=== PATIENT | male | born 1955 | race Caucasian/White ===

== ENCOUNTER 2017-01-03 23:28 | Emergency (ER) | payer OTHER ==
[2017-01-04 00:18] LABS: BASOPHIL % 0.5 % (0-2); PLATELET COUNT 229 x10^3mcL (130-400); RED CELL DISTRIBUTION WIDTH 13.7 % (11.5-14.5)
[2017-01-04 00:33] LABS: CALCIUM 9.5 mg/dL (8.5-10.1); CARBON DIOXIDE 24.9 mmol/L (21-32); CHLORIDE SERUM 108 mmol/L (98-107); CREATININE SERUM 1.3 mg/dL (0.7-1.3); GFR1 60 mL/min; GLUCOSE SERUM 107 mg/dL (74-106); POTASSIUM SERUM 3.8 mmol/L (3.5-5.1); SODIUM SERUM 141 mmol/L (136-145)
[2017-01-04 00:38] LABS: ALBUMIN 4.1 g/dL (3.4-5.0); ALKALINE PHOSPHATASE 71 U/L (46-116); ALT/SGPT 19 U/L (16-63); AST/SGOT 15 U/L (15-37); BILIRUBIN TOTAL 0.2 mg/dL (0.20-1.00); TOTAL PROTEIN, SERUM 7.2 g/dL (6.4-8.2)
[2017-01-04 02:08] LABS: microscopic required? NO
[2017-01-04 02:15] LABS: urine erythrocyte NEGATIVE (NEGATIVE)
[2017-01-04 02:24] LABS: AMPHETAMINE QUAL UR NONE DETECTED (NEG <=1000)
[2017-01-04 02:30] VITALS: BP 131/76
[2017-01-04] MEDS ORDERED: XANAX0.25 MG (15:14)
[2017-01-04] MEDS ORDERED: SEROQUEL25 MG (15:14)
== END 2017-01-04 02:30 | disposition left against medical advice (07) ==
LOC: ED 23:28
PROVIDERS: Emergency Medicine
DX: R41.0 Disorientation, unspecified (principal); Z72.0 Tobacco use
CPT/HCPCS: 36415; 83880; G0480; Q0092

== ENCOUNTER 2017-01-04 13:54 | Inpatient (IN) | payer OTHER ==
[~2017-01-04] VITALS: Ht 182.9 cm; Wt 129.5 kg
--- NOTE | 2017-01-04 14:05 | NUR ---
PT IS A 61 YEAR OLD MALE, PRESENTS TO ED VIA [facility] ALS WITH C/O ALOC. PER MEDIC, PT WAS WALKING AT XCONTRUCTION SITE, AND FELL PER BYSTANDER, PT GOT UP AND STARTED WALKING AGAIN AND FELL AGAIN AND BYSTANDER CALLED 911. UPON ARRIVAL OF MEDICS, PT WAS LAYING ON ASPHALTY FLOOR. PT WAS ALERT AND ORIENTED X2 (NAME AND BIRTHDATE). BS ON SCENE WAS 310. PER MEDIC, PT ADMITTED TO COCAINE USE COUNSELOR CAMP OF MEDICS. UNSURE OF HOW COCAINE WAS USED. UPON ARRIVAL TO ED, PT BREATHING WAS LABORED, PT NO LONGER ALERT, PT NOT RESPONDING TO VERBAL COMMANDS. PT MOANING WITH EVERY EXHALE. PT SKIN HOT TO TOUCH, PT SWEATING PROFUSELY. PT HAD ABRASION ON BILATERAL KNEES, NO ACTIVE BLEEDING. PTS PUPILS BILATERALLY WERE DILATED 6MM AND BRISK. MSE PERFORMED BY DR. HOLM. PT HOOKED TO FULL INSPECTOR RUBBER STAMP DIE.
--- NOTE | 2017-01-04 14:20 | NUR ---
MEWDICATED PT WITH TYLENOL 975MG RECTALLY.
[2017-01-04 14:22] LABS: BASOPHIL % 0.4 % (0-2); PLATELET COUNT 228 x10^3mcL (130-400); RED CELL DISTRIBUTION WIDTH 13.7 % (11.5-14.5)
[2017-01-04 14:40] LABS: CALCIUM 9.6 mg/dL (8.5-10.1); CARBON DIOXIDE 15.1 mmol/L (21-32); CHLORIDE SERUM 107 mmol/L (98-107); CREATININE SERUM 2.4 mg/dL (0.7-1.3); GFR1 29 mL/min; GLUCOSE SERUM 303 mg/dL (74-106); POTASSIUM SERUM 5.3 mmol/L (3.5-5.1); SODIUM SERUM 144 mmol/L (136-145)
--- NOTE | 2017-01-04 14:48 | NUR ---
MEDICATED PT WITH TORADOL 30MG IVP INTOP LEFT HAND PER DR. HOLM VERBAL ORDER.
[2017-01-04 14:49] LABS: ALBUMIN 4.3 g/dL (3.4-5.0); ALKALINE PHOSPHATASE 79 U/L (46-116); ALT/SGPT 23 U/L (16-63); AST/SGOT 25 U/L (15-37); BILIRUBIN TOTAL 0.48 mg/dL (0.20-1.00); CHOLESTEROL 226 mg/dL (<200); TOTAL PROTEIN, SERUM 7.9 g/dL (6.4-8.2)
[2017-01-04] MEDS ORDERED: XANAX0.25 MG (15:14)
[2017-01-04] MEDS ORDERED: SEROQUEL25 MG (15:14)
--- NOTE | 2017-01-04 15:28 | NUR ---
NOTIFIED LIVESTOCK AGENT GAUDENCIO ENRIQUEZ OK TO BE TAKEN FOR CT SCAN OF HEAD
--- NOTE | 2017-01-04 17:00 | NUR ---
REPORT CALLED TO FRACISCO SANCHEZ, SHE WILL ASSUME CARE4 PRIMARY RN POST TRASNFER
--- NOTE | 2017-01-04 17:01 | NUR ---
PT ACCIDENTLY YANKED ON IV, DC'D LEFT HAND IV, CATHETER INTACT.
[2017-01-04 17:06] LABS: CHOLESTEROL/HDL RATIO 5.4
--- NOTE | 2017-01-04 17:07 | NUR ---
PT ARRIVES FROM UNIT AT THIS TIME WITH DANIEL MCMULLEN, EMT. PT TRANSFERRED FROM ED GURNEY TO ICU BED WITHOUT INCIDENT. PT ATTACHED TO A SOIL SCIENCE TECHNICAL OFFICER AT THIS TIME AND SZ PADS IN PLACE.
[2017-01-04 17:16] LABS: T3 TOTAL 1.08 ng/mL
--- NOTE | 2017-01-04 17:40 | NUR ---
PT HAVING FULL BODY TREMORS AND/OR SZ, SZ PADS IN PLACE, 2 MG IVP ATIVAN GIVEN AT THIS TIME. AT BEDSIDE AND AWARE.
[2017-01-04 17:42] LABS: FREE T4 0.92 ng/dL (0.76-1.46); FREE THYROXINE INDEX 2.3 ug/dL (1.4-4.5); T4(THYROXINE) 6.8 ug/dL (4.7-13.3)
[2017-01-04 18:02] VITALS: BP 153/42
--- NOTE | 2017-01-04 18:30 | NUR ---
PT MAP 52, NOTIFY OF LOW BP. TO ORDER LEVOPHED.
--- NOTE | 2017-01-04 18:53 | NUR ---
PT MAP FLUCTUATING, MAP 72. WILL HOLD LEVOPHED IF NEEDED.
--- NOTE | 2017-01-04 19:21 | NUR ---
REPORT RECEIVED FROM FRACISCO SANCHEZ TO ASSUME CARE.
[2017-01-04 19:30] VITALS: BP 78/45
--- NOTE | 2017-01-04 19:30 | NUR ---
ASSESMENT DONE AT THIS TIME. PT IS LAYING SUPINE WITH HOB ELEVATED. PT IS ON 4L OF OXYGEN VIA NC. IV TO RIGHT HAND IS PATENT WITHOUT SIGNS OF INFILTRATION. HOWARD CATHETER IS DRAINING YELLOW URINE TO GRAVITY. PT IS CONNECTED TO LAUNDRY MACHINE TENDER. BED IS LOCKED AND IN LOWEST POSITION WITH RAILS X2 UP. BED IS IN VIEW OF NURSES STATION. WILL CONTINUE TO MONITOR.
[2017-01-04 22:11] LABS: CALCIUM 8.4 mg/dL (8.5-10.1); CARBON DIOXIDE 22.2 mmol/L (21-32); CREATININE SERUM 2.1 mg/dL (0.7-1.3); POTASSIUM SERUM 3.3 mmol/L (3.5-5.1)
--- NOTE | 2017-01-04 22:25 | NUR ---
16 FR NGT PLACED TO RIGHT NARE, AUDIBLE AIR BOLUS. PT UNABLE TO FOLLOW COMMANDS. PT TOLERATED PROCEDURE WELL. AWAITING XRAY TO CONFIRM PLACEMET.
--- NOTE | 2017-01-04 22:42 | NUR ---
RADIOLOGY AT BEDSIDE
[2017-01-05] VITALS (7 sets, daily range): BP systolic 102–170; BP diastolic 58–114
--- NOTE | 2017-01-05 00:28 | NUR ---
LOGISTICS ASSOCIATE AT THE BEDSIDE FOR BLOOD DRAW.
--- NOTE | 2017-01-05 02:29 | NUR ---
PT IS OFF UNTI TO CT ACCOMPANIED BY ABBIE SANCHEZ.
--- NOTE | 2017-01-05 03:05 | NUR ---
CENTRAL LINE PLACEMENT INITIATED AT THIS TIME GUIDED BY U/S AT BEDSIDE. INCAPCITATED CONSENT SIGNED BY MD, TIME OUT PERFORMED. VSS. PT MEDICATED PER MD ORDERS. WILL CONTINUE TO MONITOR.
--- NOTE | 2017-01-05 03:37 | NUR ---
CT RESULTS CALLED IN BY GENE AT [facility]. RESULTS READ BACK AND DR SCOTT AND DR DEL RIO INFORMED.
[2017-01-05 03:54] LABS: UA SPECIFIC GRAVITY 1.025 (1.005-1.035); microscopic required? YES; urine erythrocyte 3+ (NEGATIVE)
--- NOTE | 2017-01-05 04:10 | NUR ---
RADIOLOGY AT BEDSIDE
[2017-01-05 04:25] LABS: AMPHETAMINE QUAL UR NONE DETECTED (NEG <=1000)
[2017-01-05 05:42] LABS: BASOPHIL % 0.1 % (0-2); RED CELL DISTRIBUTION WIDTH 14.2 % (11.5-14.5)
[2017-01-05 05:45] LABS: PLATELET COUNT 53 x10^3mcL (130-400)
[2017-01-05 05:55] LABS: CARBON DIOXIDE 22.2 mmol/L (21-32); CREATININE SERUM 1.8 mg/dL (0.7-1.3); MAGNESIUM 2.3 mg/dL (1.8-2.4); PHOSPHOROUS 3.2 mg/dL (2.5-4.9)
--- NOTE | 2017-01-05 06:00 | NUR ---
DR TORRES AT BEDSIDE TO ASSESS PT. STATUS UPDATES PROVIDED.
--- NOTE | 2017-01-05 07:26 | NUR ---
REPORT GIVEN TO TEZ SANCHEZ. ALL QUESTIONS ANSWERED AND CONCERNS ADDRESSED.
--- NOTE | 2017-01-05 08:00 | NUR ---
PT IS SEDATED FROM MODERATE SEDATION GIVEN FOR CENTRAL LINE PLACEMENT. PT RESPONDS TO TACTILE STIMULI, DOES NOT FOLLOW COMMANDS. PERRLA, 3MM SLUGGISH. PT IS BREATHING EVEN AND UNLABORED ON 2L NC. LUNG SOUNDS ARE CLEAR TO BUL, DIMINISHED TO BASES. S1 S2 HEART SOUNDS AUSCULTATED. PULSES ARE MODERATE X4. CAP REFILL < 3 S. SKIN IS WARM AND PINK. R IJ CVC INTACT, PORTS PATENT, DRESSING CDI, INFUSING 1/2NS @ 100 CC/HR, HEPARIN @ 1400 UNITS/HR. NO EDEMA NOTED. ABRASIONS NOTED TO BILATERAL KNEES. R NARE NGT INTACT AND SECURED. ABD IS SOFT AND ROUNDED, BOWEL SOUNDS ACTIVE X4Q. HOWARD INTACT AND DRAINING VIA GRAVITY. URINE IS GONZALEZ RED, FAIR OUTPUT. NO S/SX OF PAIN AT THIS TIME. PT IN BILATERAL SOFT WRIST RESTRAINTS. BED LOW, SIDE RAILS UP X3, CALL LIGHT IN REACH. WILL CONTINUE TO MONITOR.
--- NOTE | 2017-01-05 09:29 | NUR ---
PATIENT ROUNDS WITH DR. ALVAREZ AND RESIDENTS. CHARGE NURSE AND PRIMARY NURSE AT BEDSIDE. UPDATES PROVIDED AND POC DISCUSSED. WILL CONTINUE TO MONITOR.
--- NOTE | 2017-01-05 10:38 | NUR ---
DR. POSADA MADE AWARE PATIENT'S PLATLETS COUNT WENT DOWN FROM [facility] OF 228 TO 53 THIS MORNING. PATIENT CURRENLTY ON HEPARIN DRIP AT THIS TIME. PATIENT IS CURRENTLY HAVING BLOOD DRAINING FROM F/C AND RIJ SITE WAS BLEEDING PER LEG MAN NURSE. NO NEW ORDERS AT THIS TIME. WILL CONTINUE TO MONITOR.
--- NOTE | 2017-01-05 12:45 | NUR ---
TECH AT BEDSIDE FOR ECHOCARDIOGRAM.
--- NOTE | 2017-01-05 13:17 | NUR ---
LIMITED ECHO ONLY. PT CONFUSED AND COMBATIVE.
--- NOTE | 2017-01-05 14:22 | NUR ---
LAB CALLED WITH PTT RESULT >150. HEPARIN DRIP OFF AT THIS TIME. WILL ORDER PTT IN 2 HRS FOR 1420 PER PROTOCOL. WILL CONTINUE TO MONITOR.
--- NOTE | 2017-01-05 14:31 | NUR ---
DR. LEE AT BEDSIDE TO ASSESS PATIENT. UPDATES PROVIDED AND POC DISCUSSED. PLAN TO DC HEPARIN DRIP AT THIS TIME. WILL FOLLOW AND CONTINUE TO MONITOR.
[2017-01-05 15:30] LABS: AMPHETAMINE QUAL UR NONE DETECTED (NEG <=1000)
--- NOTE | 2017-01-05 19:20 | NUR ---
REPORT RECEIVED TO ASSUME CARE. QUESTIONS AND CONCERNS ADDRESSED.
--- NOTE | 2017-01-05 19:25 | NUR ---
DR PHILLIPS PAGED TO ASSESS PT. PT ALTERED AND EXTREMELY RESTLESS.
--- NOTE | 2017-01-05 19:33 | NUR ---
DR PHILLIPS AT BEDSIDE TO ASSES PT. STATUS UPDATES PROVIDED. WILL AWAIT NEW ORDERS.
--- NOTE | 2017-01-05 23:54 | NUR ---
PT REMAINS AGITATED TRYING TO SIT UP AND GET OOB WITH BILATERAL SOFT WRIST REASTRAINTS IN PLACE FOR SAFETY.ATIVAN 2 MG IVP GIVEN ORDERED.
[2017-01-06 03:30] VITALS: BP 133/76
--- NOTE | 2017-01-06 03:42 | NUR ---
DR SOTO INFORMED PT IS HAVING EXPIRATORY WHEEZING. WILL CONTINUE TO MONITOR.
[2017-01-06 04:47] LABS: BASOPHIL % 0.4 % (0-2)
[2017-01-06 04:48] LABS: PLATELET COUNT 51 x10^3mcL (130-400); RED CELL DISTRIBUTION WIDTH 14.6 % (11.5-14.5)
[2017-01-06 04:56] VITALS: BP 104/59
[2017-01-06 05:02] LABS: CALCIUM 8.4 mg/dL (8.5-10.1); CARBON DIOXIDE 21.9 mmol/L (21-32); CREATININE SERUM 1.4 mg/dL (0.7-1.3); MAGNESIUM 2.3 mg/dL (1.8-2.4); PHOSPHOROUS 2.1 mg/dL (2.5-4.9); POTASSIUM SERUM 3.7 mmol/L (3.5-5.1)
--- NOTE | 2017-01-06 05:30 | NUR ---
DR WHITAKER AT BEDSIDE TO ASSESS PT. STATUS UPDATES PROVIDED.
--- NOTE | 2017-01-06 07:15 | NUR ---
REPORT RECIEVED FROM NOC SHIFT DANIEL CATHERINE, UPDATES PROVIDED, ALL QUESTIONS ANSWERED ALL CONCERNS ADDRESSED WILL ASSESS PATIENT SHORTLY AND ASSUME CARE.
[2017-01-06 07:40] VITALS: BP 144/75
--- NOTE | 2017-01-06 07:40 | NUR ---
PATIENT ASSESSED AT THIS TIME. PATIENT IS RESTING CALMLY IN BED AND IS ABLE TO BE AROUSED BY VERBAL STIMULI BUT QUICKLY FALLS BACK ASLEEP. PATIENT IS A/O X2 TO PERSON AND PLACE. VITAL SIGNS ARE TEMP 98.8, HR 86, 02 98, BP 144/75(90), RR 18. PATIENT IS ON 2 LPM PER NASAL CANNULA. PATIENT IS SATTING WELL. CHEST RISES SYMMETRICALLY LUNG SOUNDS ARE CLEAR BILATERALLY. PATIENT IS ON CCHO DIET. RIJ IN PLACE INFUSING 1/2 NS AT 140 ML/HR. PUPILS ARE 2 MM AND BRISK BILATERALLY. PULSES ARE STRONG RANDALL, CAP REFILL IS <3 SECONDS RANDALL. LUNG SOUNDS ARE CLEAR BILATERALLY. BOWEL SOUNDS ARE ACTIVE IN ALL 4 QUADRANTS AND SHOWS NO SIGNS OF PAIN UPON PALPATION. PATIENT HAS HOWARD CATHETER IN PLACE THAT IS DRAINING GONZALEZ COLORED URINE TO GRAVITY. SKIN IS WARM AND DRY. ABRASIONS NOTED TO BILATERAL KNEES WITH DRESSING IN PLACE. WILL CONTINUE TO MONITOR.
--- NOTE | 2017-01-06 08:05 | NUR ---
RT BEDSIDE AT THIS TIME FOR EKG. WILL CONTINUE TO MONITOR.
--- NOTE | 2017-01-06 09:35 | NUR ---
DR. DICKINSON BEDSIDE ROUNDING WITH RESIDENTS AT THIS TIME. UPDATES PROVIDED, NO NEW ORDERS RECEIVED. WILL CONTINUE TO MONITOR PATIENT.
--- NOTE | 2017-01-06 09:42 | NUR ---
DR. CARDOZA BEDSIDE AT THIS TIME FOR ASSESSMENT. UPDATES PROVIDED, ABG TO BE ORDERED.
--- NOTE | 2017-01-06 11:23 | NUR ---
Initial Nutrition Assessment Dx: Sepsis PMHx: Depression, unknown medical history due to pt AOx0 PSHx: L TKA Labs: Na 149 H, BG 79, BUN 17, Cr 1.4 H, Phosphorous 2.1 L, Troponin 10.481 H, WBC 11.3 H, H/H 12.5/37 L; (01/04) Cholesterol 226 H, LDL 166 H, A1C 5.7, Lactic Acid 3.7 H Meds: Ativan, Colace, D50, folic acid, humulin R, lactinex, NS IV, NS IV, vitamin B1, zofran Current Diet Order: Cardiac PO Intakes: (01/05) D: 0% - Needs assistance Ht: 72", 6'. Wt: 286 lb, 130 kg. BMI: 38.9 kg/m2 (Obesity Class II) IBW: 178 lb, 81 kg. %IBW: 160%. Adj BW: 205 lb, 93 kg. UBW: Unable to obtain. Age: 61 Y/O M Food Allergies: Unable to obtain. Skin: Ecchymosis to BUE, discoloration to BLE; Intact. Edu 16. Per RN, pt has abrasions on knees and bruises everywhere throughout the body, no open wounds noted. Edema: None GI: Abd soft, round. Active bowel sounds. Last BM - Unknown. Pt found with SIRS vs possible sepsis, unknown source, metabolic encephalopathy likely secondary to heat stroke per doctor's notes. Per doctor's progress note 01/06, ECHO pending, Dr. Holland evaluated pt and stopped IV heparin due to bleeding, placed on alcohol withdrawal protocol, very agitated, on soft restraints, gross blood present in urine, tongue is raw and red with gross blood on lips, teeth, gums; Pt with suspect sepsis secondary to aspiration pneumonia. Pt appears confused, not on sedation, appears overly-nourished, consistent with documented anthropometrics. No family at bedside. Spoke with RN, reported that pt is confused, took a very long time to swallow medications (whole), no swallowing issues noted, likely will want to do an ABG today. RN also stated that pt did not eat anything since dinner yesterday due to confusion, lethargy, on restraints. Estimated Nutritional Needs Based IBW 178 lb, 81 kg. Temperature: 98.8 F Energy: 0860-1439 kcal/day (30-35 kcal/kg for Sepsis) Protein: 122-162 gm/day (1.5-2 gm/kg for Sepsis) Fluids: 2430 ml/day (30 ml/kg for Maintenance) or per doctor Nutrition Diagnosis 1. Increase nutritional needs related to increase metabolic demands as evidenced by elevated lactic acid 3.7, WBC 11.3, pt with sepsis, unknown source 2. Inadequate oral intakes related to confusion, lethargy, likely altered mental status as evidenced by PO intakes 0% x2 meals Intervention 1. Note that Cardiac diet may not be appropriate for pt at this time due to confusion, lethargy. Please consider NPO status for now. 2. Consider advance diet per doctor if/when medically appropriate. 3. If able to advance to PO diet, consider Mechanical Soft, Chopped, Cardiac diet if/when medically appropriate. 4. If unable to advance to PO diet within 5-7 days, consider alternative nutrition support (EN Support) if/when medically appropriate. 5. If nutrition support is warranted, consider TF Nutren 1.5 at 20 ml/hr, increase 10 ml Q6h to goal 65 ml/hr, Free Water Flush: 150 ml Q6h. This provides 2340 kcal, 106 gm protein, 1792 ml free water daily. This meets 96% of caloric goal and 87% of protein goal. Monitor/Evaluate Goal: NPO <5-7 days; Diet advancement within 5-7 days Monitor: NPO status, diet advancement, labs, skin integrity, GI function, weights F/U in 2-3 days as HIGH risk (01/08-01/09)
[2017-01-06 11:45] VITALS: BP 104/77
--- NOTE | 2017-01-06 12:02 | NUR ---
PATIENT GOWNS AND LINEN CHANGED. FULL BED BATH GIVEN. LARGE AMOUNT OF BROWN LIQUID STOOL NOTED. APPROX. 400 ML. PATIENT WAS COMBATIVE DURING LINEN CHANGED AND REQUIRED MULTIPLE STAFF TO CLEAN.
[2017-01-06 15:10] VITALS: BP 123/71
--- NOTE | 2017-01-06 16:00 | NUR ---
DR. CERVANTES BEDSIDE AT THIS TIME. UPDATE PROVIDED, NO NEW ORDERS RECIEVED.
--- NOTE | 2017-01-06 17:17 | NUR ---
DR. CARDOZA BEDSIDE AT THIS TIME FOR ASSESSMENT. BREATHING TREATMENT TO BE ORDERED DUE TO PATIENT WHEEZING
--- NOTE | 2017-01-06 17:29 | NUR ---
RT CRAIG PAGED AT THIS TIME DUE TO PATIENT WHEEZING. BREATHING TREATMENT TO BE GIVEN.
--- NOTE | 2017-01-06 19:15 | NUR ---
RECEIVED REPORT FROM FÉLIX SANCHEZ. UPDATES PROVIDED, ALL QUESTIONS ANSWERED, ALL CONCERNS ADDRESSED. WILL ASSUME TOTAL CARE.
--- NOTE | 2017-01-06 19:23 | NUR ---
REPORT GIVEN TO NOC SHIFT DANIEL TAY. WILL ENDORSE CARE.
[2017-01-06 19:25] VITALS: BP 146/85
--- NOTE | 2017-01-06 19:25 | NUR ---
RECEIVED PT RESTING IN BED. PT HAS ALOC, ALERT AND ORIENTED X 2. PT IS AROUSABLE BY VERBAL STIMULI, BUT QUICKLY FALLS BACK ASLEEP. PUPILS 3 MM BILAT AND BRISK REACTION TO LIGHT BILAT. RIJ TLC CDI IN PLACE, SECURED, FLUSHING WELL, INFUSING 1/2 NS AT 140 ML/HR. TRACHEA MIDLINE, NO SCLERAL EDEMA NOTED. NO DRAINAGE FROM EENT. PT BREATHING ON ROOM AIR, SATTING 96-97%. LUNG SOUNDS EXPIRATORY WHEEZES TO BUL AND DIM TO BLL. CHEST RISES SYMMETRICALLY. S1, S2 AUSCULTATED. CHEST WALL STABLE. SKIN COLOR IS CONSISTENT WITH ETHNICITY, PERIPHERAL PULSES MODERATE TO BUE AND BLE. CAP REFILL IS <3 SECONDS TO BUL AND BLE. NO EDEMA NOTED. GENERALIZED WEAKNESS. RESTRAINTS NOTED TO BUE. ACTIVE ROM TO BLE AND ACTIVE LIMITED ROM TO BUE. NO OBVIOUS CONTRACTURES OR DEFORMITIES NOTED. PATIENT IS ON CARDIAC DIET. NO N/V NOTED. ABD SOFT, ROUND, AND NONTENDER TO PALPATION. ACTIVE BOWEL SOUNDS X 4. NO BM AT THIS TIME. HOWARD CATHETER IN PLACE DRAINING DARK AURY COLORED URINE TO GRAVITY. NO SCROTAL EDEMA OR PENILE DISCHARGE NOTED. PATIENT HAS HEALING ABRASIONS TO BLE KNEES LOGISTICS SUPPORT, ECCHYMOSIS NOTED TO BUE AND BLE. SOFT WRIST RESTRAINTS TO BUE. BED ON LOWEST POSITION, SIDE RAILS UP X 3, CALL LIGHT WITHIN REACH. WILL CONTINUE TO MONITOR PATIENT.
--- NOTE | 2017-01-06 22:35 | NUR ---
PATIENT IS AGITATED, RESTLESS, FREQUENTLY REPOSITIONING, AND PULLING AT RESTRAINTS. OTHER NONPHARMACOLOGICAL INTERVENTIONS ATTEMPTED SUCH REORIENTING AND PROVIDING A QUIET ENVIRONMENT. WILL MEDICATE PRN ATIVAN, SEE EMAR. WILL CONTINUE TO MONITOR.
[2017-01-07] VITALS (7 sets, daily range): BP systolic 123–155; BP diastolic 73–100
[2017-01-07 05:47] LABS: BASOPHIL % 0.4 % (0-2); RED CELL DISTRIBUTION WIDTH 14.5 % (11.5-14.5)
[2017-01-07 05:49] LABS: PLATELET COUNT 53 x10^3mcL (130-400)
[2017-01-07 06:03] LABS: CALCIUM 8.2 mg/dL (8.5-10.1); CARBON DIOXIDE 22.4 mmol/L (21-32); CHLORIDE SERUM 111 mmol/L (98-107); GFR1 > 60 mL/min; GLUCOSE SERUM 92 mg/dL (74-106); PHOSPHOROUS 1.9 mg/dL (2.5-4.9); POTASSIUM SERUM 3.9 mmol/L (3.5-5.1); SODIUM SERUM 143 mmol/L (136-145)
--- NOTE | 2017-01-07 07:25 | NUR ---
REPORT GIVEN TO DAY SHIFT RN. UPDATES PROVIDED, ALL QUESTIONS ANSWERED, ALL CONCERNS ADDRESSED.
--- NOTE | 2017-01-07 08:34 | NUR ---
DR DICKINSON ON UNIT. PATIENT RESTLESS AND AGITATED. PER MD ORDER, ADMINISTER 2.5MG HALDOL IVP. WILL CONTINUE TO MONITOR.
--- NOTE | 2017-01-07 12:23 | NUR ---
PLACED PT ON HIGHFLOW 25LPM FIO2 35% PER DR. RAMIRO CHO, RN DAGO VEGA, WILL MONITOR.
--- NOTE | 2017-01-07 14:29 | NUR ---
Follow Up Nutrition Assessment Dx: Sepsis PMHx: Depression, unknown medical history due to pt AOx0 Labs: BG 92, BUN 13, Cr 1, Phosphorous 1.9 L, WBC 9.9, H/H 11.9/36 L; (01/06) Troponin 10.481 H; (01/04) A1C 5.7, Lactic Acid 3.7 H Meds: Ativan, Colace, D50, folic acid, humulin R, lactinex, NS IV, NS IV, theragran, vitamin B1, zofran Current Diet Order: NPO except meds (x3 days) (unable to tolerate) Prior Diet Order: Cardiac PO Intakes: (01/07) B/L/D: 0% (pt too lethargic to eat); (01/06) B/L/D: 0%; (01/05) D: 0% - Needs assistance Weights: (01/06) 286 lb, 130 kg. BMI: 38.9 kg/m2 (Obesity Class II) Skin: Bruising scattered throughout all skin areas, scabs to bilateral knees, healing, scabs to inner lips. Edu 16. Edema: Non-pitting edema BLE GI: Abd soft, round. Active bowel sounds. Last BM - Unknown. Per doctor's progress note 01/07, pt was off oxygen therapy overnight, adequate oxygen saturation at 96-98%, pt responsive to voice, mumbles acknowledged response but unable to answer in full sentences; Pt with septic shock likely secondary to aspiration pneumonia, respiratory distress secondary to aspiration pneumonia vs ARDS secondary to hyperthermia. Pt eyes closed, not on sedation, no family at bedside. Pt continues to be lethargic, unable to eat at this time. Spoke with Dr. Sam at bed huddles regarding diet order as diet order still states Cardiac diet, doctor agreeable with making pt NPO at this time. Estimated Nutritional Needs Based IBW 178 lb, 81 kg. Temperature: 98.8 F Energy: 9464-5741 kcal/day (30-35 kcal/kg for Sepsis) Protein: 122-162 gm/day (1.5-2 gm/kg for Sepsis) Fluids: 2430 ml/day (30 ml/kg for Maintenance) or per doctor Nutrition Diagnosis 1. Increase nutritional needs related to increase metabolic demands as evidenced by elevated lactic acid 3.7, WBC 11.3, pt with sepsis, unknown source - *Ongoing 2. Inadequate oral intakes related to confusion, lethargy, likely altered mental status as evidenced by PO intakes 0% x2 meals - *Ongoing Intervention 1. Consider advance diet per doctor if/when medically appropriate. 2. If able to advance to PO diet, consider Mechanical Soft, Chopped, Cardiac diet if/when medically appropriate. 3. If unable to advance to PO diet within 5-7 days, consider alternative nutrition support (EN Support) if/when medically appropriate. 4. If nutrition support is warranted, consider TF Nutren 1.5 at 20 ml/hr, increase 10 ml Q6h to goal 65 ml/hr, Free Water Flush: 150 ml Q6h. This provides 2340 kcal, 106 gm protein, 1792 ml free water daily. This meets 96% of caloric goal and 87% of protein goal. Monitor/Evaluate Goal: NPO <5-7 days; Diet advancement within 5-7 days Previous Goal: NPO <5-7 days - Not Met; Diet advancement within 5-7 days - Not Met Monitor: NPO status, diet advancement, labs, skin integrity, GI function, weights F/U in 2-3 days as HIGH risk (01/09-01/10)
--- NOTE | 2017-01-07 14:38 | NUR ---
CHANGED CENTRAL LINE DRESSING USING CENTRAL LINE CLEANING KIT. DRESSING CDI. DID HOWARD LUKE CARE AND CHANGED STAT LOCK ON LEG.
--- NOTE | 2017-01-07 18:18 | NUR ---
AAO TO PERSON, TALKS OCCASIONALLY, STATES HIS NAME. CONFUSED. UNABLE TO OBEY COMMANDS, RESISTS AND WITHDRAWS TO ALL INTERACTIONS. HE IS VERY STRONG. 4 POINT RESTRAINTS, HE KICKS AND TRIES TO REMOVE LINES AND TUBES IF UNDONE. FOELY CATH DRAINING AURY URINE TO BSD. RIGHT IJ CVC SITE CDI, THE DRESSING WAS CHANGED WITH THE CVC KIT. HOWARD CARE GIVEN. HOWARD CATH DRAINED 650 ML DARK AURY URINE TO BSD. NO C/O PAIN. O2 IS HI FLOW 25/35, O2 SAT 96%.
--- NOTE | 2017-01-07 19:20 | NUR ---
REPORT RECIEVED FROM DANIEL LOZA. ALL QUESTIONS AND CONCERNS ADDRESSED.
--- NOTE | 2017-01-07 22:00 | NUR ---
PT BECOMING MORE AGGITATED, HALDOL 5MG GIVEN IM AT THIS TIME. WILL CONTINUE TO MONITOR FOR MEDICATION EFFECTS.
[2017-01-08 04:07] VITALS: BP 157/87
[2017-01-08 06:04] LABS: BASOPHIL % 0.1 % (0-2)
[2017-01-08 06:08] LABS: PLATELET COUNT 76 x10^3mcL (130-400); RED CELL DISTRIBUTION WIDTH 14.7 % (11.5-14.5)
[2017-01-08 06:16] LABS: CALCIUM 8.2 mg/dL (8.5-10.1); CARBON DIOXIDE 25.2 mmol/L (21-32); CHLORIDE SERUM 108 mmol/L (98-107); CREATININE SERUM 0.8 mg/dL (0.7-1.3); GFR1 > 60 mL/min; GLUCOSE SERUM 105 mg/dL (74-106); POTASSIUM SERUM 3.5 mmol/L (3.5-5.1); SODIUM SERUM 140 mmol/L (136-145)
--- NOTE | 2017-01-08 06:28 | NUR ---
XRAY IS AT BEDSIDE.
--- NOTE | 2017-01-08 07:30 | NUR ---
REPORT GIVEN TO DANIEL LAU. ALL QUESTIONS AND CONCERNS ADDRESSED.
[2017-01-08 08:00] VITALS: BP 157/85
--- NOTE | 2017-01-08 08:00 | NUR ---
PT. APPEARS RESTLESS CONFUSED AND ATTEMPTED TO GET OUT OF BED. ON RANDALL. SOFT WRIST RESTRAINTS UPPER AND LOWER EXT.SEE RESTRAINTS SHEET PROTOCOL.PT. ABLE TO FOLLOW SIMPLE COMMANDS ,TURN Q 2 HRS FOR COMFORT.HOWARD CATH. PATENT AND DRAINING AURY COLOR URINE.TOTAL CARE RENDERED.CONT. IV FLUIDS ORDERED.NO ACUTE RESP. DISTRESS NOTED. CONT. R.T PROTOCOL. WILL CONT. PLAN OF CARE.
--- NOTE | 2017-01-08 08:30 | NUR ---
PATIENT ROUNDS WITH DR. BRASWELL AND RESIDENTS. CHARGE NURSE AND PRIMARY NURSE AT BEDSIDE. UPDATES PROVIDED AND POC DISCUSSED. WILL CONTINUE TO MONITOR.
--- NOTE | 2017-01-08 09:00 | NUR ---
DR. BRASWELL HERE W/ OTHER MEDICAL STAFF MADE ROUNDS AND UPDATED PT. PLAN OF CARE.
--- NOTE | 2017-01-08 10:05 | NUR ---
REPORT RECEIVED AT BEDSIDE AT THIS TIME FROM DANIEL LAU. ALL QUESTIONS ANSWERED, ALL CONCERNS ADDRESSED.
--- NOTE | 2017-01-08 10:05 | NUR ---
REPORT GIVEN TO MICHAEL SANCHEZ TO CONT. PT. CARE.
--- NOTE | 2017-01-08 10:14 | NUR ---
RESTRAINT REAPPLIED TO LUE. RESTRAINT LOOSE. PT CONTINUES TO BE RESTLESS AND THRASHING IN BED.
--- NOTE | 2017-01-08 10:30 | NUR ---
PT REPOSITIONED IN BED. RESTRAINTS TIGHTENED. PT ATTEMPTING TO GRAB IV LINE. WILL CONTINUE TO MONITOR.
[2017-01-08 11:00] VITALS: BP 148/78
--- NOTE | 2017-01-08 11:00 | NUR ---
PT ASSESSED AT THIS TIME. PT BELLY BREATHING ON HI-FLOW O2. PT HAS TACHYPNEA AND WHEEZING ON INSPIRATION AND EXPIRATION. REMAINS ON FOUR POINT RESTRAINTS. RESTLESS AND ALTERED. NO ACUTE CHANGES NOTED IN PT'S STATUS PER REPORT. WILL CONTINUE TO MONITOR.
--- NOTE | 2017-01-08 11:13 | NUR ---
DR LEE ON UNIT AT THIS TIME TO ASSESS. UPDATES PROVIDED.
--- NOTE | 2017-01-08 11:15 | NUR ---
PT PLACED ON COOLING MEASURES AT THIS TIME.
--- NOTE | 2017-01-08 12:00 | NUR ---
PT CHANGED TO 50% AND 30LPM ON HI FLOW OXYGEN
--- NOTE | 2017-01-08 13:17 | NUR ---
DR. RUBIO MADE AWARE OF PATIENT'S ABG RESULTS. ORDERS TO PLACE PATIENT ON BI-PAP /6 AND OBTAIN ABG IN ONE HOUR AFTER PLACING PATIENT ON BI-PAP. ALSO AN ORDER FOR STAT CXR. WILL FOLLOW AND CONTINUE TO MONITOR.
--- NOTE | 2017-01-08 13:18 | NUR ---
RT AT BEDSIDE TO PLACE PT ON BIPAP
--- NOTE | 2017-01-08 13:26 | NUR ---
@1315, PT PLACED ON BIPAP 12/6 BUR 14 50% PER MD RUBIO. PT APPEARED TO SHOW SIGNS OF INCREASED WOB. PT TOLERATED WELL. PT REMAINS RESTRAINED AND PT WAS EDUCATED ABOUT USING THE BIPAP. SATURATION 98%. CXR TO BE DONE AND FOLLOW UP ABG PER MD RUBIO. RN AWARE OF CHANGES MADE. WILL CONTINUE TO MONITOR PT.
--- NOTE | 2017-01-08 13:55 | NUR ---
PT LAYING IN BED RESTING COMFORTABLY AT THIS TIME. PT NOT THRASHING IN BED. NO DISTRESS NOTED.
--- NOTE | 2017-01-08 14:15 | NUR ---
PT'S FiO2 TITRATED DOWN TO 35% AFTER ABG
--- NOTE | 2017-01-08 14:50 | NUR ---
DAX FROM CASE MANAGEMENT CALLED AT THIS TIME. UPDATES PROVIDED.
--- NOTE | 2017-01-08 14:57 | NUR ---
DAX FROM CASE MANAGEMENT CALLED AT THIS TIME. NO BEDS AVAILABLE AT [facility].
[2017-01-08 15:00] VITALS: BP 167/86
--- NOTE | 2017-01-08 15:00 | NUR ---
PT REASSESSED AT THIS TIME. PT BECOMING MORE AWAKE AND MORE ALERT. PT REMAINS ON BIPAP AT THIS TIME AND ON FOUR POINT RESTRAINTS FOR SAFETY. PT EDUCATED ON RESTRAINT INDICATIONS. WILL REMOVE TWO RESTRAINTS IF PT REMAINS CALM. NO ACUTE SIGNS OF DISTRESS. WILL CONTINUE TO MONITOR.
--- NOTE | 2017-01-08 15:39 | NUR ---
DR MONTOYA AT BEDSIDE AT THIS TIME TO ASSESS PT.
--- NOTE | 2017-01-08 16:30 | NUR ---
RESTRAINTS REMOVED FROM BLE AT THIS TIME FOR TRIAL.
--- NOTE | 2017-01-08 17:35 | NUR ---
PT GIVEN FULL BED BATH AND LINEN CHANGE PROVIDED AT THIS TIME. PT BECAME MORE RESPONSIVE AND ABLE TO FOLLOW COMMANDS AND ASSIST WITH TURNING. PT EDUCATED ON REMOVAL OF HOWARD. PT AGREED.
--- NOTE | 2017-01-08 18:00 | NUR ---
PT ABLE TO SWALLOW PILLS WITHOUT ISSUE AT THIS TIME.
--- NOTE | 2017-01-08 18:41 | NUR ---
HOWARD CATHETER REMOVED AT THIS TIME. CONDOM CATHETER PLACED.
--- NOTE | 2017-01-08 19:00 | NUR ---
RECVEIVED REPORT FROM DANIEL RODRIGUEZ, ALL QUESTIONS ADDRESSED HINA TAKE OVER CARE.
--- NOTE | 2017-01-08 19:08 | NUR ---
REPORT GIVEN TO NOC RN. ALL QUESTIONS ANSWERED, ALL CONCERNS ADDRESSED.
[2017-01-08 19:50] VITALS: BP 163/88
--- NOTE | 2017-01-08 19:50 | NUR ---
PT ON BIPAP 12/6, FIO2 35, O2 96, EYES OPEN SPONTANEOUSLY, NO S/S OF HEADACHE, NO DRAINAGE EENT, NO COUGH OR SECRETIONS, ORAL MUCOSA PINK AND DRY. RESPIRATIONS EQUAL AND UNLABORED, LUNGS DIMINISHED, NO S/S OF DISTRESS. HR 81, BP 163/88, MAP 121, S1S2 AUSCULTATED, NO CP, DIZZINESS OR SYNCOPE. CHEST WALL STABLE. SKIN APPROPRIATE FOR ETHNICITY, WARM AND DRY, CAP REFILL <3, NO EDEMA NOTED, PULSES PALPABLE. NO CONTRACTURES OR DEFORMITIES, GENERALIZED WEAKNESS, LIMITED ACTIVE ROM DUE TO SOFT RESTRAINTS BUE. NO N/V. ABD SOFT, ROUND NONTENDER, BOWEL SOUNDS ACTIVE, LOOSE BM. NO PENIAL DRAINAGE OR EDEMA. MULTIPLE ABRASIONS BUE/BLE/KNEES. CALM AND COOPERATIVE, WILL CONTINUE TO MONITOR.
[2017-01-08 23:24] VITALS: BP 173/75
[2017-01-09 03:26] VITALS: BP 140/74
[2017-01-09 05:04] LABS: PLATELET COUNT 118 x10^3mcL (130-400)
[2017-01-09 05:08] LABS: CALCIUM 8.7 mg/dL (8.5-10.1); CARBON DIOXIDE 24.4 mmol/L (21-32); CHLORIDE SERUM 107 mmol/L (98-107); CREATININE SERUM 0.7 mg/dL (0.7-1.3); GFR1 > 60 mL/min; GLUCOSE SERUM 97 mg/dL (74-106); POTASSIUM SERUM 3.4 mmol/L (3.5-5.1); SODIUM SERUM 143 mmol/L (136-145)
--- NOTE | 2017-01-09 05:30 | NUR ---
PT SAT IN CHAIR WHILE WE CHANGED HIS LINENS AND HELPED WASH HIMSELF UP, PLACED ON 2L NC, WILL CONTINUE TO MONITOR
--- NOTE | 2017-01-09 05:55 | NUR ---
DR TORRES AT BEDSIDE NO NEW ORDERS, WILL CONTINUE TO MONITOR
--- NOTE | 2017-01-09 06:08 | NUR ---
RT ECHEVARRIA PLACED PT BACK ON BIPAP, UNTILL DR RUBIO EVALUATES PT, WILL CONTINUE TO MONITOR
--- NOTE | 2017-01-09 07:08 | NUR ---
REPORT GIVEN TO DANIEL REAGAN, ALL QUESTIONS ADDRESSED, WILL ENDORSE CARE
--- NOTE | 2017-01-09 07:34 | NUR ---
PT IS RESTING COMFORTABLY, EASILY AROUSABLE AND FOLLOWS COMMANDS. PT IS ORIENTED TO PERSON AND PLACE. PERRLA, 4MM SLUGGISH. PT IS ON BIPAP: RATE 14, EP 6, IP 12, FIO2 35%. BREATHING IS EVEN AND UNLABORED. LUNG SOUNDS ARE DIMINISHED THROUGHOUT. HEART SOUNDS DISTANT. NSR. PULSES ARE MODERATE X4. CAP REFIL < 3 S. SKIN IS WARM AND PINK. TRACE EDEMA TO BUE AND BLE. R IJ CVC INTACT, PORTS PATENT, DRESSING CDI. 1/2 NS INFUSING @ 140 CC/HR. ABD IS OBESE, BOWEL SOUNDS ACTIVE X4Q. PT IS INCONTINENT. PT DENIES PAIN AT THIS TIME. DENIES CHEST PAIN. HOB ELEVATED, BED LOW, SIDE RAILS UP X3, CALL LIGHT IN REACH. WILL CONTINUE TO MONITOR.
[2017-01-09 07:55] VITALS: BP 126/72
--- NOTE | 2017-01-09 09:30 | NUR ---
PATIENT ROUNDS WITH DR. MARTINES AND RESIDENTS. CHARGE NURSE AND PRIMARY NURSE AT BEDSIDE. POC DISCUSSED AND UPDATES PROVIDED. WILL CONTINUE TO MONITOR.
--- NOTE | 2017-01-09 09:30 | NUR ---
Pt REFUSES TO WEAR HIGH FLOW N/C. SPO2 92%. WILL MONITOR.
[2017-01-09 12:33] VITALS: BP 95/56
[2017-01-09 15:44] VITALS: BP 124/69
--- NOTE | 2017-01-09 19:05 | NUR ---
RECEIVED REPORT FROM DANIEL REAGAN, WILL ENDORSE CARE.
[2017-01-09 19:17] VITALS: BP 134/65
--- NOTE | 2017-01-09 19:20 | NUR ---
PT RESTING IN CHAIR, EYES OPEN SPONTANEOUSLY, PUPILS 5MM FIXED, RESPONDS TO QUESTIONS, GENERALIZED WEAKNESS, FULL ACTIVE/PASSIVE ROM, NO S/S OF HEADACHE. TRACHEA MIDLINE, NO DRAINAGE EENT, NO COUGH OR SECRETIONS, ORAL MUCOSA PINK AND DRY. LUNGS DIMINISHED THROUGHOUT, RESPIRATIONS EQUAL AND UNLABORED, NO DISTRESS. HR 86, BP 134/65, MAP 98, S1S2 AUSCULTATED, CHEST WALL STABLE, NO CP, DIZZINESS, OR SYNCOPE. SKIN APPROPRIATE FOR ETHNICITY, WEARM AND DRY, CAP REFILL <3, NO EDEMA, PULSES PALPABLE. NO CONTRACTURES OR DEFROMITIES. ABD SOFT, ROUND, NONTENDER, BOWELSOUNDS ACTIVE, NO BM. NO PENIAL EDEMA OR DRAINAGE. ABRASIONS BUE/BLE/BL KNEES, PT TURNS SELF. CALM AND COOPERATIVE, WILL CONTINUE TO MONITOR.
[2017-01-09 23:05] VITALS: BP 134/68
--- NOTE | 2017-01-10 02:45 | NUR ---
CAME BACK FROM LUNCH PT WAS STANDING BY BED, TRIED REORIENTING HIM, WHILE GETTING ON CONTACT PRECAUTIONS, STARTED TO PUT PT IN BED, PT ALMOST FELL EASED HIM DOWN TO ONE KNEE, CALLED FOR HELP TO GET HIM UP IN BED, PT WAS TO WEAK TO HELP, GOT PT IN BED APPLIED RESTRAINTS FOR PT SAFETY, DR GAMBINO INFORMED CAME TO SEE PT, PT NOW RESTING IN BED ALL LEADS REAPPLIED, WILL CONTINUE TO MONITOR.
--- NOTE | 2017-01-10 03:00 | NUR ---
DR GAMBINO ORDERED HALDOL ONE TIME, WILL CONTINUE TO MONITOR
[2017-01-10 03:30] VITALS: BP 132/74
--- NOTE | 2017-01-10 05:20 | NUR ---
DR MONTOYA AT BEDSIDE, ALL QUESTIONS ADDRESSED, WILL CONTINUE TO MONITOR
[2017-01-10 05:37] LABS: PLATELET COUNT 193 x10^3mcL (130-400); RED CELL DISTRIBUTION WIDTH 14.2 % (11.5-14.5)
[2017-01-10 05:45] LABS: CALCIUM 8.7 mg/dL (8.5-10.1); CARBON DIOXIDE 25.3 mmol/L (21-32); CHLORIDE SERUM 109 mmol/L (98-107); CREATININE SERUM 0.8 mg/dL (0.7-1.3); GFR1 > 60 mL/min; GLUCOSE SERUM 102 mg/dL (74-106); POTASSIUM SERUM 3.1 mmol/L (3.5-5.1); SODIUM SERUM 144 mmol/L (136-145)
--- NOTE | 2017-01-10 06:29 | NUR ---
K 3.1 DR MONTOYA ORDERED K RIDER, INFUSING 50ML/HR, WILL CONTINUE TO MONITOR
[2017-01-10 06:46] LABS: BAND NEUTROPHIL 2 % (0-10); MONOCYTE 5 % (0-7); SEGMENTED NEUTROPHILS 79 % (37-75)
[2017-01-10 06:49] LABS: PLATELET MORPHOLOGY PLATELETS NORMAL; rbc morphology (normal/abnorm) NORMAL (NORMAL)
--- NOTE | 2017-01-10 07:12 | NUR ---
REPORT GIVEN TYCarlos RN MIN, ALL QUESTIONS ADDRESSED, WILL ENDORSE CARE
--- NOTE | 2017-01-10 07:13 | NUR ---
RECIEVED REPORT FROM KENNETH SANCHEZ AT BEDSIDE. ALL QUESTIONS AND CONCERNS ANSWERED. PT IS AWAKE AND ALERT TO PERSON AND BIRTHDAY. NO SIGNS OF CUELLO AND DIZZINESS. FOUND PT RECIEVING 2L O2 VIA PALMIRA. NO SIGNS OF SOB OR ACUTE DISTRESS. BL DIMINISHED LUNG SOUNDS. EVEN CHEST RISE. S1S2 PRESENT. PT DENIES CHEST PAIN. TRACE EDEMA TO BLE. SKIN ABRASION TO BL KNEES. L KNEE IS SCABBING THEODORE, R KNEE DRESSING CDI. SKIN ARBRASION TO L FA, RAP ARTIST. BS ACTIVE X4. NONTENDER PALPATION TO ABD. NO SIGNS OF N/V. PT HAD A SOFT BM. PT IS ABLE TO VOID. RIJ INTACT AND PATENT, DRESSING CDI. GOWNS AND ALL LINES ARE CHANGED. SAT PT ON A CHAIR AT BEDSIDE WITH PALMIAR IN PLACE RECIEVING 2L O2. BED AT LOW AND CALL LIGHT IN PT'S HAND. PT SITTING IN CHAIR WATCHING TV.
--- NOTE | 2017-01-10 07:30 | NUR ---
PT IS NOT COMMBATIVE, BL WRIST RESTRAINTS ARE REMOVED.
[2017-01-10 08:06] VITALS: BP 146/74
--- NOTE | 2017-01-10 08:15 | NUR ---
Pt REFUSED HHN TX AT THIS TIME. WILL MONITOR.
--- NOTE | 2017-01-10 08:20 | NUR ---
HARPAL RT AT BEDSIDE TO IMPLEMENT BREATHING TX. PT REFUSED BREATHING TX. ALLSION RT EXPLAIN THE BENIFIT AND RISKS. PT IS AWARE AND REFUSED TX.
--- NOTE | 2017-01-10 09:00 | NUR ---
DR DICKINSON AND RESIDENTS ROUNDING AT THIS TIME. UPDATES PROVIDED AT THIS TIME. NEW ORDERS RECEIVED.
--- NOTE | 2017-01-10 09:08 | NUR ---
CLEANSED L KNEE WITH SALINE AND APPLIED BACITRACIN AND DRESSED WOUND WITH ADAPTIC.
--- NOTE | 2017-01-10 09:25 | NUR ---
SET BREAKFAST TRAY FOR PT WHILE SITTING IN CHAIR. PT DOESNOT HAVE MUCH APPITITE TO EAT. CALL LIGHT WITHIN REACH.
--- NOTE | 2017-01-10 11:31 | NUR ---
PT IS RESTING IN CHAIR RECIEVING 2 L O3 VIA PALMIRA 985 O2SAT. BL DIMINISH LUNG SOUNDS, NO SIGNS OF SOB OR ACUTE DISTRESS. PT IS SLEEPY ORIENTED TO PERSON. NO SIGNS OF CUELLO AND DIZZINESS. BL PUPILS EQUAL REACTIVE TO LIGHT 5MM, SLUGGISH. PT IS ABLE TO FOLLOW VERBAL COMMAND AND ABLE TO COMMUNICATE. BS ACTIVE X4, ABD SOFT AND ROUND. NONTENDDER PALPATION TO ABD. PALPITABLE BUE RADIAL PULSES, MODERATE. CALL LIGHT WITHIN REACH.
[2017-01-10 11:35] VITALS: BP 108/64
--- NOTE | 2017-01-10 13:14 | NUR ---
ASSISTED PT WITH LUNCH. PT TOLERATED DIET AND WAS ABLE TO CHEW AND PT BACK TO BED FROM CHAIR WITH ASSIST FROM 2RNS AT BEDSIDE. PT RESTING IN BED WITH EVEN CHEST RISE. BED AT LOW AND CALL LIGHT WITHIN REACH.
--- NOTE | 2017-01-10 14:10 | NUR ---
AT BEDSIDE TO UPDATE PLAN OF CARE FOR PT.
--- NOTE | 2017-01-10 16:15 | NUR ---
PT HAD A LOOSE DARK GREEN BM. CLEASED PT WITH PARTIAL BATH. NEW LINENS AND GOWNS ARE CHANGED.
--- NOTE | 2017-01-10 16:35 | NUR ---
1. Recommend mechanical soft, chopped cardiac diet. 2. Recommend adding Boost Plus BID between meals (provides 720kcal and 28g pro)
--- NOTE | 2017-01-10 16:35 | NUR ---
Follow-up Nutrition Assessment Dx:Sepsis Labs: (01/10) K:3.1L, replacing, B, BUN:6.0L,H/H:10.9/33L trending down. (01/04) Lactic acid:3.7H trending down) Chol:226H, LDL:166H, Meds: Colace, D50, Folic acid, Haldol, Humulin, Lactinex, Neutra-phos, KCL, Seroquel, NS IVF, Theragran, B1, Zofran, Zoloft, Diet: Regular, no appetite per RN note (01/10) PO intake: (01/04) NPO (01/05) NPO (01/06) 0%, pt too lethargic to eat (01/07)B:25%, patient too lethargic to eat (01/08) NPO (01/09) B:NPO, L:10% D:50% (01/10) L:30% per RN. 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 Edema: Trace edema to BLE Last BM: 01/09 Per progress note 01/10, per nursing pt was agitated and restless throughout the night, attempting to stand and trying to leave the room. Continues to be oriented to person and place but not time. He is able to eat with assistance (depth perception challenges). Per RN, pt ate 30% of lunch this afternoon and observed pt coughing when he was eating a taco this afternoon but was able to eat his clam chowder. RN requested texture change and is open to supplements for the pt. Pt with no N/V/D/C. Per huddles this morning, pt is waiting for bed at the [facility]. Estimated Nutritional Needs unchanged from prior assessment:IBW 178#, 81kg Energy: 2430-2835kcal/day (30-35kcal/day for sepsis) Protein: 122-162g/day (1.5-2gm/day for sepsis) Fluid: 2430ml/day (30ml/kg for maintenance) or per doctor Nutrition Diagnosis 1. Increased nutritional needs related to increased metabolic demands as evidenced by elevated lactic acid 3.7, WBC:11.3, pt with sepsis, unknown source, ongoing 2. Inadequate oral intake related to confusion, lethargy, likely altered mental status as evidenced by PO intakes 0% x 2 meals- ongoing Intervention 1. Recommend mechanical soft, chopped cardiac diet. 2. Recommend adding Boost Plus BID between meals. Monitor/Evaluate Goal: PO intake at least 75% of estimated needs from meals and supplements. Monitor: PO intake, Labs, GI function F/U in 3-5 days as risk moderate risk: 01/13-9
[2017-01-10 16:39] VITALS: BP 133/78
--- NOTE | 2017-01-10 16:45 | NUR ---
PT IS AROUSIBLE AND OTIENTED TO PERSON. BL EQUAL PUPILS, REACTIVE TO LIGHT 5MM, SLUGGISH. DENIES CUELLO AND DIZZINESS. PT IS ABLE TO FOLLOW VERBAL COMMANDS AND ABLE TO COMMUNICATE NEEDS. PT RECIEVING 2LO2 VIA PALMIRA. BL DIMINISH LUNG SOUNDS. EVEN CHEST RISE, UNLABORED BREATHING. S1SW PRESENT AND DENIES CHEST PAIN. R KNEE DRESSING IS CDI. L KNEE SCABS IS THEODORE. LFA SKIN ABRASION IS HEALTHCARE MANAGEMENT, NO DRAINAGE NOTED. BS ACTICE X4. NO SIGNS OF N/V. NONTENDER PALPATION TO ABD. RIJ INTACT AND PATENT, DRESSING CDI. TRACHEAL AT MIDLINE. PT DENIES ANY DISCOMFORT AND PAIN AT THIS TIME. BED AT LOW AND CALL LIGHT WITHIN REACH.
--- NOTE | 2017-01-10 17:58 | NUR ---
ASSISTED PT WITH DINNER. PT TOLERATED TEXTURE AND REGULAR DIET. PT ATE 70% OF TRAY. BED AT LOW AND CALL LIGHT WITHIN REACH.
--- NOTE | 2017-01-10 19:15 | NUR ---
RECEIVED REPORT FROM TEA RN. WILL ASSUME TOTAL CARE.
[2017-01-10 19:17] VITALS: BP 98/58
--- NOTE | 2017-01-10 19:17 | NUR ---
RECEIVED PT A&O X 2. PT OPENS EYES TO TACTILE STIMULI AND LOCALIZES TO PAIN. PT HAS GARBLED/INCOHERENT SPEECH. PT IS SLOW TO RESPOND. PUPILS 5MM BILAT AND SLUGGISH RESPONSE TO LIGHT BILAT. NO DRAINAGE FROM EENT. NASAL CANNULA IN PLACE. DRY ORAL MUCOUS MEMBRANES. RIJ TLC CDI, PATENT AND FLUSHING WELL. TRACHEA MIDLINE. PT IS BREATHING EASY AND UNLABORED VIA NASAL CANNULA 2LPM. SYMMETRICAL CHEST EXPANSION. NO COUGH NOTED. LUNG SOUNDS DIMINISHED BILAT. PT IS BREATHING EASY AND UNLABORED VIA NASAL CANNULA 2LPM. SYMMETRICAL CHEST EXPANSION. NO COUGH NOTED. LUNG SOUNDS DIMINISHED BILAT. S1, S2 AUSCULTATED. CHEST WALL STABLE. NO S/S OF CHEST PAIN AT THIS TIME. PERIPHERAL PULSES MODERATE TO BUE AND WEAK TO BLE. CAP REFILL <3 SECONDS TO BUE AND BLE. TRACE EDEMA TO BLE. GENERALIZED WEAKNESS. ACTIVE ROM X 4 EXTREMITIES. PT ABLE TO FREQUENTLY REPOSITION IN BED. NO OBVIOUS DEFORMITIES OR CONTRACTURES NOTED. PT ON REGULAR DIET. NO N/V NOTED AT THIS TIME. ABD OBESE, SOFT, ROUND, AND NONTENDER TO PALPATION. ACTIVE BOWEL SOUNDS X 4. NO BM AT THIS TIME. PT IS INCONTINENT. NO SCROTAL EDEMA. SKIN IS DRY, WTT. SKIN COLOR IS CONSISTENT WITH ETHNICITY. SKIN ABRASIONS TO L FA, THEODORE. SCABS TO L KNEE PHYSICIAN IN PRIVATE PRACTICE. R KNEE DRESSSING CDI. BED ON LOWEST POSITION, SIDE RAILS UP X 3, CALL LIGHT WITHIN REACH. WILL CONTINUE TO MONITOR PATIENT.
--- NOTE | 2017-01-10 20:25 | NUR ---
RT AT BEDSIDE FOR ASSESSMENT AND BREATHING TREATMENT.
--- NOTE | 2017-01-10 21:00 | NUR ---
RT AT BEDSIDE, BIPAP INITIATED. SETTINGS: IPAP 12 EPAP 6 RATE 14 O2 35% PATIENT IS COOPERATIVE AT THIS TIME; RESPIRATIONS 18, O2 98%, WILL CONTINUE TO MONITOR.
--- NOTE | 2017-01-10 22:10 | NUR ---
PT IS RESTLESS, MOVING AROUND FREQUENTLY, ATTEMPTING TO GET OUT OF BED. RT AT BEDSIDE. BIPAP DISCONTINUED AT THIS TIME. WILL CONTINUE TO MONITOR.
--- NOTE | 2017-01-10 23:05 | NUR ---
1 MG OF MORPHINE PROVIDED. PT C/O 11/16 GENERALIZED PAIN. ATTEMPTS TO CLIMB OUT OF BED, WILL MONITOR PT CLOSELY.
[2017-01-10 23:33] VITALS: BP 130/87
--- NOTE | 2017-01-11 | NUR ---
RT AT BEDSIDE FOR ASSESSMENT AND BREATHING TREATMENT.
--- NOTE | 2017-01-11 00:40 | NUR ---
PT CONTINUES TO ATTEMPT TO GET OUT OF BED AND IS CONFUSED. PT STATES "I'M GOING TO GO TO THE OTHER ROOM". PT REORIENTED TO ENVIRONMENT. DR GAMBINO NOTIFIED AND MADE AWARE. NEW ORDERS RECEIVED.
--- NOTE | 2017-01-11 03:30 | NUR ---
CLEANSED R KNEE WITH WOUND CLEANSER, APPLIED BACITRACIN, AND APPLIED NONADHERENT DRESSING WRAPPED LIGHTLY WITH GAUZE WRAP. NO PURULENT DRAINAGE FROM WOUND OBSERVED.
[2017-01-11 03:40] VITALS: BP 147/79
--- NOTE | 2017-01-11 04:20 | NUR ---
RT AT BEDSIDE FOR ASSESSMENT AND BREATHING TREATMENT.
[2017-01-11 05:17] LABS: CALCIUM 8.4 mg/dL (8.5-10.1); CARBON DIOXIDE 25.6 mmol/L (21-32); CHLORIDE SERUM 107 mmol/L (98-107); CREATININE SERUM 0.7 mg/dL (0.7-1.3); GFR1 > 60 mL/min; GLUCOSE SERUM 92 mg/dL (74-106); POTASSIUM SERUM 3.1 mmol/L (3.5-5.1); SODIUM SERUM 142 mmol/L (136-145)
--- NOTE | 2017-01-11 07:04 | NUR ---
RECIEVED REPORT FROM JASVIR SANCHEZ AT BEDSIDE. ALL QUESTIONS AND CONCERNS ADDRESS.
--- NOTE | 2017-01-11 07:05 | NUR ---
REPORT GIVEN TO MIN RN. UPDATES PROVIDED. ALL QUESTIONS ANSWERED, ALL CONCERNS ADDRESSED. WILL ENDORSE CARE.
--- NOTE | 2017-01-11 07:07 | NUR ---
REPORT GIVEN TO FÉLIX SANCHEZ. UPDATES PROVIDED. ALL QUESTIONS ANSWERED, ALL CONCERNS ADDRESSED. WILL ENDORSE CARE.
[2017-01-11 08:00] VITALS: BP 91/52
--- NOTE | 2017-01-11 08:40 | NUR ---
PATIENT WAS SITTING IN CHAIR BEDSIDE AND ATTEMPTED TO GET UP. PATIENT WAS ASKED TO PLEASE SIT BACK DOWN HIS GAIT IS UNSTEADY AND PATIENT WITH PERIODS OF CONFUSION. PATIENT STATED "I'M GOING TO LEAVE." I ATTEMPTED TO REORIENT PATIENT TO SITUATION AND EXPLAINED TO HIM THAT IT WOULD NOT BE SAFE FOR HIM TO LEAVE AT THIS TIME. PATIENT APPEARED CONFUSED AND CONTINUED TO HEAD TO THE DOOR OF THE ROOM. SECURITY WAS RADIOED TO THE UNIT AND LOGISTICS ANALYTICS MANAGER CALLED AT THIS TIME. PATIENT WALKED TOWARD THE EXIT AND DEFICATED ON THE FLOOR AND HIMSELF. TEA RN AND FÉLIX RN CONTIUED TO REORIENT PATIENT AND EXPLAINED TO HIM THAT HE HAD DEFICATED ON HIMSELF AND NEEDED TO GO BACK TO BED SO HE CAN BE CLEANED UP. PATIENT SAW THE EMPLOYEE BATHROOM AND SAT ON THE TOILET AND FINISHED PASSING HIS STOOLS. PATIENT CLEANED HIMSELF AND GOT A LARGE AMOUNT OF FECAL MATTER ON HIS HAND. FÉLIX RN AND TEA RN EXPLAINED TO PATIENT THAT HE NEEDED TO DISPOSE OF HIS TOILET TISSUE PROPERLY. PATIENT IGNORED THE RN'S AND CONTINUED TO GET UP AND THROW HIS SOILED TOILED TISSUE IN THE TRASH CAN. PATIENT WAS PROVIDED HAND SOAP AND THE RN'S HAD TO EXPLAIN TO HIM HOW TO WASH HIS HANDS. WHEN PATIENT FINISHED CLEANING HIS HANDS, [facility] ANALYTICS MANAGER, FÉLIX SANCHEZ, TEA RN AND MYSELF PERSUADED PATIENT TO GET BACK INTO BED. PATIENT WAS THEN CLEANED AND ADMINISTERED [address]P [address] CARBAJAL ORDER. BED NOW IN LOWEST POSITION AND BED ALARM TURNED ON. WILL CONTINUE TO MONITOR CLOSELY.
--- NOTE | 2017-01-11 09:09 | NUR ---
PATIENT INCREASINGLY AGITATED AND TRYING TO GET OUT OF BED AFTER BEING REORIENTED THREE TIMES. PATIENT BACK IN BED NOW, ATIVAN ADMINISTERED. WILL CONTINUE TO MONITOR
--- NOTE | 2017-01-11 09:18 | NUR ---
PT RECIEVING A BREATHING TX. TOELRATING TX WELL. RT AT BEDSIDE.
--- NOTE | 2017-01-11 09:26 | NUR ---
PATIENT RESTING COMFORTABLY IN BED WITH EYES CLOSED. NO S/S OF DISTRESS NOTED. WILL CONTINUE TO MONITOR.
[2017-01-11 11:50] VITALS: BP 131/57
--- NOTE | 2017-01-11 12:30 | NUR ---
ASSISTED PT'S FEEDING AND PT ONLY ATE HALF A PUDDING. TOLERATED PUDDING.
--- NOTE | 2017-01-11 12:45 | NUR ---
AT BEDSIDE TO ASSESS PT. PT WAS DROWSY AND WAS SLOW TO ANSWER. DR. TAYLOR WILL BE BACK TOMORROW TO REASSESS PT.
--- NOTE | 2017-01-11 13:17 | NUR ---
PT SOILED SELF. GAVE PT PATIAL BEDBATH AND CHANGED GOWNS AND LINES. APPLIED ZGUARD TO REDNESS OF BUTTOCK. BED AT LOW AND CALL LIGHT WITHIN REACH.
--- NOTE | 2017-01-11 14:15 | NUR ---
PT RECIEVING 2LO2 PT'S O2SAT IS BETWEEN 90%-93%, INCRESE O2 TO 3L. 94%O2SAT. EVEN CHEST RISE AND UNLABORED BREATHING. BED AT LOW AND CALL LIGHT WITHIN REACH.
[2017-01-11 15:27] VITALS: BP 140/82
--- NOTE | 2017-01-11 15:50 | NUR ---
PT RESTING IN BED AT THIS TIME. ABLE TO FOLLOW VERBAL COMMANDS AND COMMUNICATE NEEDS. DENIES CUELLO AND DIZZINESS. RECIEVING 3LO2 VIA PALMIRA. NO SIGNS OF SOB OR ACUTE DISRESS. EVEN CHEST RISE AND UNLABORED BREATHING. PT DENIES ANY PAIN AT THIS TIME. BED AT LOW AND CALL LIGHT WITHIN REACH.
--- NOTE | 2017-01-11 16:10 | NUR ---
PT RECIEVING BREATHING TX AT BEDSIDE. PT TOLERATING WELL. BED AT LOW AND CALL LIGHT WITHIN REACH.
--- NOTE | 2017-01-11 16:32 | NUR ---
AT BEDSIDE ASSESSING PT AT BEDSIDE.
--- NOTE | 2017-01-11 17:43 | NUR ---
ASSISTED PT WITH DINNER AND FEED PT. PT FINISHED 70% OF MEAL. TOLERTED DIET AND TEXTURE WELL. NO SIGNS OF N/V. BED AT LOW AND CALL LIGHT WITHIN REACH.
--- NOTE | 2017-01-11 19:10 | NUR ---
RECEIVED REPORT FROM TEA RN. WILL ASSUME TOTAL CARE.
--- NOTE | 2017-01-11 19:11 | NUR ---
ENDORSED ALL CARE TO JASVIR RN. GIVEN REPORT AT BEDSIDE TO JASVIR RN. ALL ANSWERS AND CONCERNS ARE ANSWERED.
--- NOTE | 2017-01-11 19:13 | NUR ---
RECEIVED PT A&O X 2. PT OPENS EYES TO VERBAL STIMULI AND OBEYS SIMPLE COMMANDS. PT SPEAKS IN CONFUSED/INAPPROPIATE SENTENCES AND RESPONDS INAPPROPIATELY. PUPILS 5MM BILAT AND SLUGGISH RESPONSE TO LIGHT BILAT. NO DRAINAGE FROM EENT. NASAL CANNULA IN PLACE; RECEIVING 3LPM. DRY ORAL MUCOUS MEMBRANES. RIJ TLC CDI, PATENT AND FLUSHING WELL. INFUSING 1/2 NS 140ML/HR. TRACHEA MIDLINE. PT IS BREATHING EASY AND UNLABORED VIA NASAL CANNULA 3LPM. SYMMETRICAL CHEST EXPANSION. NO COUGH NOTED. LUNG SOUNDS DIMINISHED BILAT. S1, S2 AUSCULTATED. CHEST WALL STABLE. NO S/S OF CHEST PAIN AT THIS TIME. PT SKIN WTT. PERIPHERAL PULSES MODERATE TO BUE AND WEAK TO BLE. CAP REFILL <3 SECONDS TO BUE AND BLE. TRACE EDEMA TO BLE. THICKENED TOENAILS NOTED. GENERALIZED WEAKNESS. ACTIVE ROM X 4 EXTREMITIES. PT FREQUENTLY REPOSITIONS SELF IN BED. NO OBVIOUS DEFORMITIES OR CONTRACTURES NOTED. PT ON REGULAR DIET. NO N/V NOTED AT THIS TIME. ABD OBESE, SOFT, AND NONTENDER TO PALPATION. ACTIVE BOWEL SOUNDS X 4. NO BM AT THIS TIME. PT IS INCONTINENT. NO SCROTAL EDEMA NOTED. SKIN IS DRY, WTT. SKIN COLOR IS CONSISTENT WITH ETHNICITY. SKIN ABRASIONS TO L FA, DRY CHAIN OPERATOR. SCABS TO L KNEE AND R KNEE THEODORE. BED IN LOWEST POSITION, SIDE RAILS UP X 3, CALL LIGHT WITHIN REACH. WILL CONTINUE TO MONITOR.
[2017-01-11 19:20] VITALS: BP 160/65
--- NOTE | 2017-01-11 20:15 | NUR ---
RT AT BEDSIDE FOR ASSESSMENT.
[2017-01-11 23:28] VITALS: BP 150/77
--- NOTE | 2017-01-12 00:15 | NUR ---
RT AT BEDSIDE FOR BREATHING TREATMENT.
--- NOTE | 2017-01-12 03:00 | NUR ---
PATIENT IS RESTLESS, CONSTANTLY ATTEMPTING TO GET OUT OF BED, FREQUENTLY POSITIONING LEGS OUT OF BED, SIGNS OF AGITATION. PRN MEDICATION ADMINISTERED, SEE EMAR.
[2017-01-12 03:28] VITALS: BP 152/55
--- NOTE | 2017-01-12 04:20 | NUR ---
RT AT BEDSIDE FOR BREATHING TREATMENT.
[2017-01-12 05:06] LABS: BASOPHIL % 0.7 % (0-2); PLATELET COUNT 315 x10^3mcL (130-400)
--- NOTE | 2017-01-12 05:12 | NUR ---
BED BATH PROVIDED, LINENS AND GOWN CHANGED, PATIENT RESTING COMFORTABBLY IN BED. WILL CONTINUE TO MONITOR.
[2017-01-12 05:14] LABS: CALCIUM 8.2 mg/dL (8.5-10.1); CARBON DIOXIDE 25.8 mmol/L (21-32); CHLORIDE SERUM 108 mmol/L (98-107); CREATININE SERUM 0.7 mg/dL (0.7-1.3); GFR1 > 60 mL/min; GLUCOSE SERUM 95 mg/dL (74-106); MAGNESIUM 1.8 mg/dL (1.8-2.4); PHOSPHOROUS 2.9 mg/dL (2.5-4.9); POTASSIUM SERUM 3.4 mmol/L (3.5-5.1); SODIUM SERUM 141 mmol/L (136-145)
--- NOTE | 2017-01-12 07:16 | NUR ---
RECIEVED REPORT AT BEDSIDE FROM NOEMY SANCHEZ. ALL QUESTIONS AND CONCERNS ANSWERED. WILL RESUME CARE.
--- NOTE | 2017-01-12 07:16 | NUR ---
REPORT GIVEN TO MIN RN, UPDATES PROVIDED, ALL QUESTIONS ANSWERED, ALL CONCERNS ADDRESSED.
--- NOTE | 2017-01-12 07:45 | NUR ---
FED PT BREAKFAST, PT IS ABLE TO HOLD MILK IN HAND TO FED SELF. PPT TOLERATED BREAKFAST WELL. BED AT LOW AND CALL LIGHT WITHIN REACH.
--- NOTE | 2017-01-12 08:00 | NUR ---
PT SOILED SELF. HAD A SEMI FORMED GREEN BM. LINENS AND GOWNS ARE CHANGED. REDNESS TO BUTTOCK WITH SKIN INTACT, ZGUARD IS APPLIED. BED AT LOW AND CALL LIGHT WITHIN REACH.
[2017-01-12 08:05] VITALS: BP 122/71
--- NOTE | 2017-01-12 09:31 | NUR ---
PT SOILED SELF. GAVE PT A PARTIAL BATH AND WASHED HAIR. PT IS ABLE TO BRUSH OWN TEETH. LINENS AND GOWN CHANGED. PT IS BEING RESTLESS IN BED. PT ON RESTRAINTS WITH ACTIVE FULL ROM. BED AT LOW AND CALL LIGHT WITHIN REACH. PT'S ROOM CLOSE TO NURSING STATION.
--- NOTE | 2017-01-12 10:00 | NUR ---
PT IS HALLUCINATING STATING," COUNT THE BUGS THEY'RE EVERYWHERE". PT ALSO CLAIMS HE LIVES WITH YAMILET.
[2017-01-12 11:34] VITALS: BP 153/79
--- NOTE | 2017-01-12 11:45 | NUR ---
PT IS RESTLESS IN BED TRYING TO PULL LINES AND EQUIMENTS. PT ON 4 POINT RESTRAINTS WITH FULL ACTIVE ROM ON ALL EXT. NO SIGNS OF SKIN BREAKDOWN AROUND RESTRAINTS. PT IS AAOX2 TO PERSON AND YEAR. BL PUPILS EQUAL AND REACTIVE TO LIGHT 5MM, BRISK. DENIES CUELLO AND DIZZINESS. PT RECIEVING 3LO2 VIA PALMIRA. SYMMETRIC CHEST RISE AND UNLABORED BREATHING. NO SIGNS OF SOB OR ACUTE DISTRESS. RIJ IN PLACE AND PATNET, DRESSING CDI. BED AT LOW AND CALL LIGHT WITHIN REACH.
--- NOTE | 2017-01-12 12:22 | NUR ---
PT RECIEVING A BREATHING TX AT THIS TIME.
--- NOTE | 2017-01-12 13:00 | NUR ---
AT BEDSIDE ASSESSING PT AND UPDATING CARE OF PLANS.
--- NOTE | 2017-01-12 13:40 | NUR ---
PT IS AGIATED AND RESTLESS, WILL MEDICATE PER EMAR.
--- NOTE | 2017-01-12 14:00 | NUR ---
PT IS CALM AND RESTING IN BED WITH SYMMETRIC CHEST RISE. PT RECIEVING 3L O2 VIA PALMIRA. NO SIGNS OF SOB OR ACUTE DISTRESS. BED AT LOW AND CALL LIGHT WITHIN REACH.
--- NOTE | 2017-01-12 15:15 | NUR ---
PT SOILED SELF. GAVE PT TOTAL BATH AND CHANGED ALL LINENS AND GOWN.
--- NOTE | 2017-01-12 15:49 | NUR ---
PATIENT CONTINUES WITH BLADDER INCONTINENCE. RED RASH NOTED TO GROIN AND PERIANAL AREA. PATIENT WITH IMPAIRED SKIN INTEGRITY D/T INCONTINENCE. ORDER RECEIVED FOR FOLWY CATHETER INSERTION. USING ASEPTIC TECHNIQUE, #16 SLOVENIAN HOWARD INSERTED AT THIS TIME WITH APPROXIMATELY 200 ML OF YELLOW URINE RETURN. PATIENT TOLERATED WITH NO S/S OF DISTRESS NOTED. WILL CONTINUE TO MONITOR.
[2017-01-12 16:36] VITALS: BP 136/86
--- NOTE | 2017-01-12 18:16 | NUR ---
AT BEDSIDE ASSESSING PT AND UPDATING CARE OF PLAN.
--- NOTE | 2017-01-12 19:34 | NUR ---
RECEIVED ORIENTED TO PERSON BUT NOT TO TIME AND PLACE.VERY RESTLESS ATTEMPTING TO GET OOB WITH BILATERAL SOFT WRIST RESTRAINTS AND LEFT LEG INPLACE.RE-ORIENTED AND REASSURED PERIODICALLY.CARDIAC SCOPE SHOWS SR HR 96 WITH NO ECTOPIES.ON 3L/MIN O2 VIA NASAL CANNULA O2 SAT 95% RR 15.RIGHT IJ TLC WITH NS AT 140 ML/H INFUSING WELL.HOWARD CATHETER TO GRAVITY DRAINAGE BAG.BED ON LOW POSITION WITH SIDERAILS UP AND CALL LIGHT WITHIN REACH.
[2017-01-12 19:56] VITALS: BP 141/80
--- NOTE | 2017-01-12 20:48 | NUR ---
ABLE TO GET OFF SOFT RESTRAINTS PLACED ON VELCRO RESTRAINTS ON BILATERAL UPPER EXTREMITIES PROTOCOL FOLLOWED.ABLE TO SWALLOW MEDICATIONS WITHOUT ANY DIFFICULTY.
--- NOTE | 2017-01-12 21:07 | NUR ---
SPECIMEN FOR MRSA CLEARANCE SENT TO LAB.
--- NOTE | 2017-01-12 23:44 | NUR ---
STILL WITH PERIODS OF AGITATION,SLEEPING AT SHORT INTERVALS.RESTRAINTS INPLACE FOR SAFETY PROTOCOL FOLLOWED,VISUAL CHECK DONE.RECEIVING BREATHING TREATMENT PER RT YULI.RIGHT IJ TLC INTACT WITH DRESSING CLEAN,IVF INFUSING.HOWARD DRAINING.BED IN LOW POSITION WITH SIDERAILS UP.
[2017-01-12 23:47] VITALS: BP 142/77
--- NOTE | 2017-01-13 03:45 | NUR ---
ABLE TO SLEEP AT LONG INTERVALS RESTLESS AT TIMES.CARDIAC SCOPE SHOWS SR HR 78 NO ECTOPIES.REMAINS ON 3L/MIN O2 WITH O2 SAT 06% RR 21.RIGHT IJ TLC PATENT WITH 1/2 NS AT 140 ML/H INFUSING WELL.HOWARD DRAINING LARGE AMOUNT.STILL WITH RESTRAINTS REMAINS UNCOOPERATIVE AND CONFUSED WITH UNRELIABLE BEHAVIOUR.BED ON LOW POSITION.HOWARD CARE DONE AND MICHELL BATH GIVEN PER PROTOCOL.
[2017-01-13 03:49] VITALS: BP 106/60
[2017-01-13 05:30] LABS: BASOPHIL % 0.1 % (0-2); PLATELET COUNT 406 x10^3mcL (130-400); RED CELL DISTRIBUTION WIDTH 14.6 % (11.5-14.5)
[2017-01-13 05:43] LABS: CALCIUM 8.8 mg/dL (8.5-10.1); CARBON DIOXIDE 26.7 mmol/L (21-32); CHLORIDE SERUM 108 mmol/L (98-107); CREATININE SERUM 0.7 mg/dL (0.7-1.3); GFR1 > 60 mL/min; GLUCOSE SERUM 92 mg/dL (74-106); PHOSPHOROUS 3.3 mg/dL (2.5-4.9); POTASSIUM SERUM 3.9 mmol/L (3.5-5.1); SODIUM SERUM 142 mmol/L (136-145)
--- NOTE | 2017-01-13 05:51 | NUR ---
ABLE TO SLEEP EASILY AROUSED ORIENTED TO SELF ONLY,SLOW TO ANSWER.OFF VELCRO RESTRAINTS PLACED BACK ON BILATERAL SOFT WRIST RESTRAINTS WITH LEFT ANKLE RESTRAINTS INPLACE.AM FULL BATH MICHELL WIPES AND HOWARD CARE DONE PER PROTOCOL.PT SEEN BY UPDATED ON PTS STATUS.PT HAD 2000 ML URINE OUTPUT NO BM THIS SHIFT.
--- NOTE | 2017-01-13 06:33 | NUR ---
CXR DONE BY TECH.
--- NOTE | 2017-01-13 07:15 | NUR ---
RECEIVED REPORT FROM [facility] SHIFT DANIEL RYAN, ALL QUESTIONS AND CONCERNS ADDRESSED AT THIS TIME. WILL ASSUME ALL CARE.
--- NOTE | 2017-01-13 07:20 | NUR ---
PT IS SLEEPING AT THIS TIME, PT EYES OPEN TO VERBAL STIMULI AND PUPILS ARE SLUGGISH 5 MM BILATERALLY. PT IS ORIENTED TO SELF. SPEECH IS GARBLED. PT IS ABLE TO FOLLOW COMMANDS. PT ON 3L NC, CLEAR BUL, DIM BLL. PT HAS NO COUGH OR SECRETIONS NOTED. PT HAS HYPERACTIVE BOWEL SOUNDS X 4 QUADRANTS, NO BM AT THIS TIME. PT HAS HOWARD CATH IN PLACE DRAINING TO GRAVITY YELLOW URINE, SEDIMENT NOTED. NO PENILE DISCHARGE OR SCROTAL EDEMA PRESENT. PT HAS DRY SCABS ON BLE/BILATERAL KNEES THEODORE. PT HAS ECCHYMOSIS ON BUE/BLE. PT HAS REDNESS TO GROIN AREA, SEE EMAR FOR CREAM DETAILS. PT HAS RIJ INFUSING 1/2 NS 140. ALL PORTS PATENT AND FLUSHING. 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 WILL CONTINUE TO MONITOR PT AT THIS TIME.
[2017-01-13 07:39] VITALS: BP 103/64
[2017-01-13 08:10] VITALS: Ht 182.9 cm; Wt 129.5 kg
--- NOTE | 2017-01-13 09:00 | NUR ---
PATIENT ROUNDS WITH DR. MARTINES AND RESIDENTS. CHARGE NURSE AND PRIMARY NURSE AT BEDSIDE. UPDATES PROVIDED AND POC DISCUSSED. WILL CONTINUE TO MONITOR.
--- NOTE | 2017-01-13 10:24 | NUR ---
PT APPEARS RESTLESS AT THIS TIME. PT SPEECH MORE CLEAR AND SAYING HE NEEDS TO MAKE HIS APPOINTMENT IN [place], ORIENTED PT TO TIME AND PLACE. ASKING PT ABOUT SELF, HE STATED HE WAS IN 1988 AND IN 1996. PT HAS PERIODS OF CONFUSION AND CLARITY. WHEN ASSESSING ORIENTATION, PT STATES IT IS AUGUST OF 2016. WILL CONTINUE TO MONITOR PT AT THIS TIME.
[2017-01-13 11:23] VITALS: BP 102/64
--- NOTE | 2017-01-13 14:35 | NUR ---
ATTEMPTED TO CALL ROSITA CULP RN AT [facility], PER ROSITA, CALL BACK TO GIVE REPORT AT 1630 HE IS NOT SURE WHICH NURSE HE WILL BE ASSIGNING THE PATIENT. WILL CALL BACK AT 1630 REQUESTED.
[2017-01-13 14:38] VITALS: BP 102/64
--- NOTE | 2017-01-13 14:50 | NUR ---
PHYSICAL THERAPY AT BEDSIDE. PT ABLE TO AMBULATE TO RECLINER CHAIR. ALL RESTRAINTS REMOVED. 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 WILL CONTINUE TO MONITOR PT.
[2017-01-13] MEDS ORDERED: ATORVASTATIN CA40 M1 PO (15:29)
[2017-01-13] MEDS ORDERED: ZES10 PO (15:29)
[2017-01-13] MEDS ORDERED: TYL325 PO (15:30)
[2017-01-13] MEDS ORDERED: SERTRALINE50 M1 PO (15:30)
[2017-01-13] MEDS ORDERED: LAM100 PO (15:30)
[2017-01-13] MEDS ORDERED: TYL650S PR (15:30)
[2017-01-13] MEDS ORDERED: SERO100 PO ×2 (15:31→15:32)
[2017-01-13] MEDS ORDERED: LAC PO (15:32)
[2017-01-13] MEDS ORDERED: NIZC TOP (15:32)
[2017-01-13] MEDS ORDERED: MVIL PO (15:33)
[2017-01-13] MEDS ORDERED: AMERINET CHOICE1 PD3 IV (15:34)
[2017-01-13] MEDS ORDERED: ROC1I IV (15:35)
--- NOTE | 2017-01-13 16:00 | NUR ---
PT HAS MOD SOFT BM AT THIS TIME, PT CLEANSED AND MOVED FROM RECLINER TO BED AND PLACED BACK IN BUE SOFT WRIST RESTRAINTS AND LLE SOFT RESTRAINTS AT THIS TIME. WILL CONTINUE TO MONITOR PT.
[2017-01-13 16:08] VITALS: BP 145/59
--- NOTE | 2017-01-13 16:44 | NUR ---
ATTEMPTED TO CALL GEE CULP RN. NO ANSWER AT THIS TIME. WILL CALL BACK IN 10 MINUTES.
--- NOTE | 2017-01-13 17:07 | NUR ---
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 ALL QUESTIONS AND CONCERNS ADDRESSED AT THIS TIME. WILL ENDORSE ALL CARE ONCE PT AMBULANCE HAS ARRIVED.
--- NOTE | 2017-01-13 17:40 | NUR ---
[facility], REPORT GIVEN AND PT PLACED ONTO [place] WITHOUT INCIDENT. PT RIJ S/L ALL PORTS PATENT AND FLUSHING. PT TRANSFERRED AT THIS TIME.
== END 2017-01-13 17:40 | disposition short-term general hospital (02) | DRG 871 ==
LOC: ED 13:54 → IC 16:03 → DU 16:03 → IC 16:03
PROVIDERS: Emergency Medicine; Family Medicine; Internal Medicine Interventional Cardiology; Student in an Organized Health Care Education/Training Program; ADMIT Family Medicine
PROC: 05HM33Z Insertion of Infusion Device into Right Internal Jugular Vein, Percutaneous Approach (ICD-10-PCS; principal; 2017-01-05)
PROC: B543ZZA Ultrasonography of Right Jugular Veins, Guidance (ICD-10-PCS; 2017-01-05)
DX: A41.9 Sepsis, unspecified organism (principal); R65.21 Severe sepsis with septic shock; J96.01 Acute respiratory failure with hypoxia; J69.0 Pneumonitis due to inhalation of food and vomit; G93.41 Metabolic encephalopathy; N17.0 Acute kidney failure with tubular necrosis; T67.0XXA Heatstroke and sunstroke, initial encounter; E87.0 Hyperosmolality and hypernatremia; E87.2 Acidosis; F31.64 Bipolar disorder, current episode mixed, severe, with psychotic features; E86.0 Dehydration; E87.6 Hypokalemia; E83.39 Other disorders of phosphorus metabolism; S80.212A Abrasion, left knee, initial encounter; S80.211A Abrasion, right knee, initial encounter; S90.411A Abrasion, right great toe, initial encounter; R73.03 Prediabetes; E78.5 Hyperlipidemia, unspecified; D69.59 Other secondary thrombocytopenia; E66.9 Obesity, unspecified; Z68.31 Body mass index [BMI] 31.0-31.9, adult; Z22.322 Carrier or suspected carrier of Methicillin resistant Staphylococcus aureus; X58.XXXA Exposure to other specified factors, initial encounter; X30.XXXA Exposure to excessive natural heat, initial encounter; Y92.69 Other specified industrial and construction area as the place of occurrence of the external cause
CPT/HCPCS: 36556; 36600; 82962; 83880; 84439; 97110-GP; 97530-GP; G0480; J0696; J1170; J1630; J1642; J1644; J1885; J2060; J2270; J2543; J3480; J3486; J3490; J7030; J7620; Q0092